=== PATIENT | female | born 1985 | race Caucasian/White ===

== ENCOUNTER 2017-11-24 08:32 | Emergency (ER) | payer BC, OTHER ==
[~2017-11-24 08:32] MED LIST: BUPR-128 PO; BUPR300T56 PO; FAMO20TA28 PO; LIDO20SO21 PO; LOR5/325 PO; LORA-1456 PO; LORA10CA3 PO; NORG1TAB94 PO; PRED20TA6 PO; SULF500T48 PO; [UNRECOGNIZED DRUG - OTHER] PO
--- NOTE | 2017-11-24 08:35 | ER Report ---
History and Physical Time Seen By MD: 08:34 HPI/ROS CHIEF COMPLAINT: Left lateral hand laceration HISTORY OF PRESENT ILLNESS: Patient is a 32-year-old female here with complaints of a small superficial left lateral hand laceration approximately 2 cm in length. Patient was reportedly cutting laminate material with a new sharp cut her when she slipped and cut her hand. Tetanus is up-to-date. Patient denies other injury at this time. Hemostasis is achieved. Neurovascular exam is intact REVIEW OF SYSTEMS: Neuro: NV exam intact of upper extremity Skin: + 2 cm superficial laceration of left lateral hand Allergies: Coded Allergies: No Known Drug Allergies (Unverified , 11/24/17) Home Meds Reported Medications Fluoxetine Hcl (PROZAC) 20 Mg Capsule, 60 MG PO QDAY, CAPSULE 11/24/17 Pantoprazole Sodium (PANTOPRAZOLE SODIUM) 40 Mg Tablet.dr, 20 MG PO QDAY, TAB.SR 11/24/17 Amphet Asp/Amphet/D-Amphet (ADDERALL XR 30 MG CAPSULE) 30 Mg Cap.er.24h, 30 MG PO DAILY 11/24/17 Bupropion Hcl (WELLBUTRIN) 100 Mg Tablet, 300 MG PO QDAY, TAB 09/24/15 Discontinued Reported Medications Loratadine (CLARITIN) 10 Mg Capsule, 10 MG PO QDAY, CAPSULE 09/24/15 Norgestimate-Ethinyl Estradiol (ORTHO TRI-CYCLEN) 1 Each Tablet, 1 EACH PO QDAY 09/24/15 Discontinued Scripts Hydrocodone Bit/Acetaminophen (HYDROCODON-ACETAMINOPHEN 5-325) 1 Each Tablet, 1 EACH PO Q4-6H for PAIN, #2 TAKE ONE TABLET BY MOUTH EVERY 4-6 HOURS NEEDED FOR PAIN Prov:HANH HANDY MD 09/16/15 Sulfasalazine (SULFASALAZINE) 500 Mg Tablet, 500 MG PO BID, #60 TAB Prov:HANH HANDY MD 09/16/15 Lorazepam (ATIVAN) 1 Mg Tablet, 1 MG PO Q6-8H Y for ANXIETY, #12 Prov:MOUNA BERRIOS DO 09/05/15 Hx Smoking: No Smoking Status: Never Smoker Exposure to Second Hand Smoke?: No Hx Substance Use Disorder: No Hx Alcohol Use: No Constitutional Vital Sign - Last 24 Hours 11/24/17 08:35 Temp 98.2 Pulse 74 Resp 18 B/P (MAP) 141/92 Pulse Ox 94 O2 Delivery Room Air Physical Exam General Appearance: The patient is alert, has no immediate need for airway protection and no current signs of toxicity. NAD Extremities have full range of motion and are non tender. Skin: No rashes or lesions. Neuro: NV exam intact DIFFERENTIAL DIAGNOSIS: After history and physical exam differential diagnosis was considered for laceration, abrasion Medical Decision Making ED Course/Re-evaluation ED Course Patient is a 32-year-old female here with a small superficial laceration left lateral hand. Tetanus is up-to-date. Wound was closed using 3 4-0 suture. Patient was advised to have the sutures removed in 7-10 days. Neurovascular exam was intact after closure. Procedure Wound was instilled with approximately 2 mL of Lidocaine 1% with epinephrine. Laceration was closed using 4-0 Ethilon sutures 3. Hemostasis was achieved. Wound was covered with a bandage. Neurovascular exam was intact after closure. Decision to Disposition Date: Nov 24, 2017 Decision to Disposition Time: 09:11 Depart Departure Latest Vital Signs Vital Signs Date Time Temp Pulse Resp B/P (MAP) Pulse Ox O2 Delivery O2 Flow Rate FiO2 11/24/17 08:35 98.2 74 18 141/92 94 Room Air Impression: Primary Impression: Hand laceration Condition: Improved Disposition: HOME OR SELF-CARE Referrals: GLENYS CAAL MD (PCP) Patient Instructions: Hand Laceration Additional Instructions: Please have sutures removed in 7-10 days. Please return promptly if you develop worsening numbness, weakness, fevers, chills, rashes. NGUYEN MURRELL DO Nov 24, 2017 08:35
[2017-11-24] MEDS ORDERED: PANT40TA65 PO (08:38)
[2017-11-24] MEDS ORDERED: ADDE30XRPT PO (08:38)
[2017-11-24] MEDS ORDERED: FLUO-202 PO (08:38)
[2017-11-24 09:25] VITALS: BP 127/77
== END 2017-11-24 09:25 | disposition home or self-care (01) ==
LOC: ER 08:33
DX: S61.412A Laceration without foreign body of left hand, initial encounter (principal); W26.9XXA Contact with unspecified sharp object(s), initial encounter
CPT/HCPCS: 99282